=== PATIENT | male | born 1940 | race Caucasian/White ===

== ENCOUNTER 2022-10-11 16:20 | Inpatient (IN) | payer MEDICARE, MEDICAID ==
[~2022-10-11] VITALS: Ht 175.3 cm; Wt 54.4 kg
[2022-10-11 17:28] LABS: BASOPHILS # (AUTO) 0.1 K/UL (0.0-0.2); BASOPHILS % (AUTO) 1.6 % (0.0-2.0); EOSINOPHILS # (AUTO) 0.1 K/uL (0.0-0.7); EOSINOPHILS % (AUTO) 1.8 % (0.0-7.0); HEMATOCRIT 33.8 % (36.7-47.1); HEMOGLOBIN 11.5 g/dL (12.5-16.3); LYMPHOCYTES # (AUTO) 0.7 K/uL (0.8-4.8); LYMPHOCYTES % (AUTO) 12.8 % (20.5-51.5); MEAN CORPUSCULAR HEMOGLOBIN 32.9 uug (23.8-33.4); MEAN CORPUSCULAR HGB CONC 34 g/dL (32.5-36.3); MEAN CORPUSCULAR VOLUME 97.1 fL (73.0-96.2); MONOCYTES # (AUTO) 0.5 K/uL (0.1-1.30); MONOCYTES % (AUTO) 8.1 % (0.0-11.0); NEUTROPHILS # (AUTO) 4.3 K/uL (1.8-8.9); NEUTROPHILS % (AUTO) 75.7 % (38.5-71.5); PLATELET COUNT (AUTO) 185 K/uL (152-348); RED BLOOD CELL COUNT(AUTO) 3.48 MIL/uL (4.06-5.63); RED CELL DISTRIBUTION WIDTH 17.4 % (12.1-16.2); WHITE BLOOD COUNT (AUTO) 5.7 K/uL (3.6-10.2)
[2022-10-11 17:46] LABS: DIFFERENTIAL COMMENT 1
[2022-10-11 17:51] LABS: ALANINE AMINOTRANSFERASE 21 U/L (16-63); ALBUMIN 2.8 g/dL (3.4-5.0); ALKALINE PHOSPHATASE 82 U/L (50-136); ASPARTATE AMINOTRANSFERASE 14 U/L (15-37); BILIRUBIN,DIRECT 0.2 mg/dL (0.0-0.2); BILIRUBIN,TOTAL 0.3 mg/dL (0.2-1.0); CALCIUM 8.3 mg/dL (8.5-10.1); CARBON DIOXIDE 18 mmol/L (21-32); CHLORIDE 100 mmol/L (98-107); CREATININE 5.5 mg/dL (0.6-1.3); GLUCOSE 259 mg/dL (74-106); POTASSIUM 5.4 mmol/L (3.5-5.1); SODIUM SERUM 133 mmol/L (136-145); TOTAL PROTEIN, SERUM 6.3 g/dL (6.4-8.2)
[2022-10-11 18:11] LABS: UREA NITROGEN, BLOOD 115 mg/dL (7-18)
[2022-10-11] MEDS ORDERED: ONDANSETRON 4 MG/2 ML VIAL IV PRN (19:45)
[2022-10-11] MEDS ORDERED: MAGNESIUM HYDROXIDE 30 ML LIQUID UDC PO PRN (19:45)
[2022-10-11] MEDS ORDERED: ACETAMINOPHEN 325 MG TABLET PO PRN (19:45)
[2022-10-11] MEDS ORDERED: DEXTROSE 50% 50 ML DISP.SYRIN IV PRN (19:45)
[2022-10-11] MEDS ORDERED: IV NS 1000 ML 1,000 ML IV PRN (19:45)
[2022-10-11] MEDS ORDERED: REMEDY ESSENTIAL ZINC PASTE 113 GM TP PRN (19:45)
[2022-10-11] MEDS: MORPHINE SULFATE 2 MG/1 ML DISP.SYRIN IV PRN (21:09)
[2022-10-11] MEDS: HYDROCODONE/APAP 5-325MG TABLET PO PRN (22:05)
[2022-10-11 23:01] VITALS: BP 186/89; TEMP 97.9; O2SAT 99
[2022-10-11] MEDS ORDERED: LEVA0.6320 NEB (23:02)
[2022-10-11] MEDS ORDERED: INSU100C (23:02)
[2022-10-11] MEDS ORDERED: TAMS-3 PO (23:02)
[2022-10-11] MEDS ORDERED: LOSA25TA3 PO (23:02)
[2022-10-11] MEDS ORDERED: ALBU18HF2 INH (23:02)
[2022-10-11] MEDS ORDERED: METO-356 PO (23:02)
[2022-10-11] MEDS ORDERED: prostat PO (23:02)
[2022-10-11] MEDS ORDERED: SEVE800T8 PO (23:02)
[2022-10-11] MEDS ORDERED: BUME1TAB8 PO (23:02)
[2022-10-11] MEDS ORDERED: UMEC62.5 IH (23:02)
[2022-10-11] MEDS ORDERED: DICL2.5D EACHEYE (23:02)
[2022-10-11] MEDS ORDERED: DOCU-141 PO (23:02)
[2022-10-11] MEDS ORDERED: MEGE400O5 PO (23:02)
[2022-10-11] MEDS ORDERED: TRAZ-257 PO (23:02)
[2022-10-11] MEDS ORDERED: ISOS30TA9 PO (23:02)
[2022-10-11] MEDS ORDERED: ACET325T53 PO (23:02)
[2022-10-11] MEDS ORDERED: ATOR40TA PO (23:02)
[2022-10-11] MEDS ORDERED: RANO500T3 PO (23:02)
[2022-10-11] MEDS ORDERED: OLOP5DRO15 EACHEYE (23:02)
[2022-10-11] MEDS ORDERED: POLY1GRA PO (23:02)
[2022-10-11] MEDS ORDERED: RANO500T6 PO (23:02)
[2022-10-11] MEDS ORDERED: FERR325T28 PO (23:02)
[2022-10-11] MEDS ORDERED: [UNRECOGNIZED DRUG - OTHER] PO (23:02)
[2022-10-11] MEDS ORDERED: PANT40TA2 PO (23:02)
[2022-10-11] MEDS: BLOOD SUGAR DIAGNOSTIC 1 EACH STRIP VI SCH (23:09)
[2022-10-11] MEDS ORDERED: TRAZODONE 50 MG TABLET PO PRN (23:15)
[2022-10-11] MEDS ORDERED: hydrALAZINE HCL 20 MG/1 ML VIAL IV PRN (23:15)
[2022-10-12 00:30] VITALS: BP 160/91; TEMP 97.9; O2SAT 99
[2022-10-12 04:10] VITALS: BP 160/80; TEMP 98; O2SAT 99
[2022-10-12] MEDS: BLOOD SUGAR DIAGNOSTIC 1 EACH STRIP VI SCH ×4 (07:02→21:31)
[2022-10-12 07:03] LABS: BASOPHILS # (AUTO) 0.1 K/UL (0.0-0.2); BASOPHILS % (AUTO) 1.9 % (0.0-2.0); EOSINOPHILS # (AUTO) 0.1 K/uL (0.0-0.7); EOSINOPHILS % (AUTO) 1.7 % (0.0-7.0); HEMATOCRIT 33.7 % (36.7-47.1); HEMOGLOBIN 11.5 g/dL (12.5-16.3); LYMPHOCYTES # (AUTO) 1.1 K/uL (0.8-4.8); LYMPHOCYTES % (AUTO) 19.9 % (20.5-51.5); MEAN CORPUSCULAR HEMOGLOBIN 32.9 uug (23.8-33.4); MEAN CORPUSCULAR HGB CONC 34 g/dL (32.5-36.3); MONOCYTES # (AUTO) 0.4 K/uL (0.1-1.30); MONOCYTES % (AUTO) 8.2 % (0.0-11.0); NEUTROPHILS # (AUTO) 3.7 K/uL (1.8-8.9); NEUTROPHILS % (AUTO) 68.3 % (38.5-71.5); PLATELET COUNT (AUTO) 193 K/uL (152-348); RED BLOOD CELL COUNT(AUTO) 3.51 MIL/uL (4.06-5.63); RED CELL DISTRIBUTION WIDTH 17.2 % (12.1-16.2); WHITE BLOOD COUNT (AUTO) 5.4 K/uL (3.6-10.2)
[2022-10-12] MEDS: PANTOPRAZOLE SODIUM 40 MG TABLET.DR PO SCH (07:04)
[2022-10-12] MEDS: HYDROCODONE/APAP 5-325MG TABLET PO PRN ×3 (07:04→21:27)
[2022-10-12 07:21] LABS: DIFFERENTIAL COMMENT 1
[2022-10-12 07:29] LABS: CALCIUM 8.3 mg/dL (8.5-10.1); CARBON DIOXIDE 20 mmol/L (21-32); CHLORIDE 101 mmol/L (98-107); CHOLESTEROL 116 mg/dL (<200); CREATININE 5.5 mg/dL (0.6-1.3); GLUCOSE 123 mg/dL (74-106); HDL CHOLESTEROL 65 mg/dL (40-60); MAGNESIUM 2.5 mg/dL (1.8-2.4); SODIUM SERUM 135 mmol/L (136-145); TRIGLYCERIDES 61 MG/DL (30-150)
[2022-10-12 07:46] LABS: THYROID STIMULATING HORMONE 1.931 mIU/mL (0.358-3.740)
[2022-10-12 08:28] LABS: PHOSPHOROUS 8.5 mg/dL (2.5-4.9); UREA NITROGEN, BLOOD 110 mg/dL (7-18)
[2022-10-12 11:50] VITALS: BP 142/75; TEMP 98.3; O2SAT 98
[2022-10-12] MEDS: INSULIN REGULAR, HUMAN 300 UNIT/3 ML VIAL SQ PRN ×3 (12:14→16:10)
[2022-10-12] MEDS: MORPHINE SULFATE 2 MG/1 ML DISP.SYRIN IV PRN ×2 (13:14→18:49)
[2022-10-12] MEDS: SEVELAMER CARBONATE 800 MG TABLET PO SCH ×2 (13:19→17:17)
[2022-10-12] MEDS: RANOLAZINE 500 MG TAB.ER.12H PO SCH (17:17)
[2022-10-12] MEDS: TRAZODONE 100 MG TABLET PO SCH (17:17)
[2022-10-12] MEDS ORDERED: ATORVASTATIN 40 MG TABLET PO SCH (21:00)
[2022-10-12] MEDS ORDERED: TAMSULOSIN HCL 0.4 MG CAP.SR.24H PO SCH (21:00)
[2022-10-13 06:28] LABS: BASOPHILS # (AUTO) 0.1 K/UL (0.0-0.2); BASOPHILS % (AUTO) 1.4 % (0.0-2.0); EOSINOPHILS # (AUTO) 0.1 K/uL (0.0-0.7); EOSINOPHILS % (AUTO) 1.3 % (0.0-7.0); HEMATOCRIT 36.4 % (36.7-47.1); HEMOGLOBIN 12.4 g/dL (12.5-16.3); LYMPHOCYTES # (AUTO) 0.8 K/uL (0.8-4.8); LYMPHOCYTES % (AUTO) 19.7 % (20.5-51.5); MEAN CORPUSCULAR HEMOGLOBIN 33.2 uug (23.8-33.4); MEAN CORPUSCULAR HGB CONC 34 g/dL (32.5-36.3); MEAN CORPUSCULAR VOLUME 97.6 fL (73.0-96.2); MONOCYTES # (AUTO) 0.3 K/uL (0.1-1.30); MONOCYTES % (AUTO) 7.7 % (0.0-11.0); NEUTROPHILS # (AUTO) 2.9 K/uL (1.8-8.9); NEUTROPHILS % (AUTO) 69.9 % (38.5-71.5); PLATELET COUNT (AUTO) 197 K/uL (152-348); RED BLOOD CELL COUNT(AUTO) 3.73 MIL/uL (4.06-5.63); RED CELL DISTRIBUTION WIDTH 17.3 % (12.1-16.2); WHITE BLOOD COUNT (AUTO) 4.1 K/uL (3.6-10.2)
[2022-10-13 06:39] LABS: CALCIUM 8.7 mg/dL (8.5-10.1); CARBON DIOXIDE 23 mmol/L (21-32); CHLORIDE 100 mmol/L (98-107); CREATININE 5.8 mg/dL (0.6-1.3); GLUCOSE 119 mg/dL (74-106); SODIUM SERUM 135 mmol/L (136-145)
[2022-10-13] MEDS: PANTOPRAZOLE SODIUM 40 MG TABLET.DR PO SCH (06:40)
[2022-10-13] MEDS: BLOOD SUGAR DIAGNOSTIC 1 EACH STRIP VI SCH ×3 (06:41→16:22)
[2022-10-13 06:53] LABS: DIFFERENTIAL COMMENT 1
[2022-10-13 07:15] LABS: UREA NITROGEN, BLOOD 107 mg/dL (7-18)
[2022-10-13] MEDS: SEVELAMER CARBONATE 800 MG TABLET PO SCH ×3 (08:33→17:35)
[2022-10-13] MEDS: RANOLAZINE 500 MG TAB.ER.12H PO SCH ×2 (08:33→16:30)
[2022-10-13] MEDS: OLOPATADINE 0.1% OPHT DROP 5 ML BOTTLE EACHEYE SCH ×2 (08:37→08:55)
[2022-10-13] MEDS ORDERED: BUMETANIDE 1 MG TABLET PO SCH (09:00)
[2022-10-13] MEDS ORDERED: LOSARTAN POTASSIUM 25 MG TABLET PO SCH (09:00)
[2022-10-13] MEDS ORDERED: FERROUS SULFATE 325 MG TABEC PO SCH (09:00)
[2022-10-13] MEDS ORDERED: METOPROLOL SUCCINATE XL 25 MG TAB.SR.24H PO SCH (09:00)
[2022-10-13 09:23] VITALS: BP 164/92; TEMP 97.8; O2SAT 98
[2022-10-13] MEDS: MORPHINE SULFATE 2 MG/1 ML DISP.SYRIN IV PRN (09:35)
[2022-10-13 11:11] VITALS: BP 155/78; TEMP 98.6; O2SAT 97
[2022-10-13] MEDS ORDERED: SODIUM POLYSTYRENE SULFONATE 15 G/60 ML LIQUID UDC PO ONE (11:30)
[2022-10-13 15:09] VITALS: BP 143/78; TEMP 98.4; O2SAT 98
[2022-10-13] MEDS: TRAZODONE 100 MG TABLET PO SCH (17:35)
[2022-10-13] MEDS ORDERED: ALBUMIN HUMAN 25% 50 ML IV PRN (17:45)
[2022-10-13 20:00] VITALS: BP 147/72; TEMP 98.6; O2SAT 96
== END 2022-10-13 20:00 | DRG 640 ==
LOC: ER 16:20 → TELE3 21:51
PROVIDERS: ADMIT Nurse Practitioner Acute Care; ATTEND Nurse Practitioner Acute Care
PROC: 5A1D70Z Performance of Urinary Filtration, Intermittent, Less than 6 Hours Per Day (ICD-10-PCS; principal; 2022-10-13)
DX: E87.5 Hyperkalemia (principal); N18.6 End stage renal disease; I13.2 Hypertensive heart and chronic kidney disease with heart failure and with stage 5 chronic kidney disease, or end stage renal disease; I50.32 Chronic diastolic (congestive) heart failure; D68.59 Other primary thrombophilia; N17.9 Acute kidney failure, unspecified; E87.20 Acidosis, unspecified; E11.22 Type 2 diabetes mellitus with diabetic chronic kidney disease; Z99.2 Dependence on renal dialysis; Z91.158 Patient's noncompliance with renal dialysis for other reason; Z79.4 Long term (current) use of insulin; E87.1 Hypo-osmolality and hyponatremia; E78.5 Hyperlipidemia, unspecified; I48.0 Paroxysmal atrial fibrillation; M89.8X9 Other specified disorders of bone, unspecified site; L89.91 Pressure ulcer of unspecified site, stage 1; R26.2 Difficulty in walking, not elsewhere classified; I25.10 Atherosclerotic heart disease of native coronary artery without angina pectoris; Z95.5 Presence of coronary angioplasty implant and graft; K21.9 Gastro-esophageal reflux disease without esophagitis; N40.0 Benign prostatic hyperplasia without lower urinary tract symptoms; J44.9 Chronic obstructive pulmonary disease, unspecified; F43.21 Adjustment disorder with depressed mood; S90.32XA Contusion of left foot, initial encounter; I87.2 Venous insufficiency (chronic) (peripheral); X58.XXXA Exposure to other specified factors, initial encounter; Y92.129 Unspecified place in nursing home as the place of occurrence of the external cause; Z87.891 Personal history of nicotine dependence; I34.81 Nonrheumatic mitral (valve) annulus calcification; R25.1 Tremor, unspecified; E83.39 Other disorders of phosphorus metabolism; D63.1 Anemia in chronic kidney disease; E83.41 Hypermagnesemia; E11.51 Type 2 diabetes mellitus with diabetic peripheral angiopathy without gangrene; Z91.199 Patient's noncompliance with other medical treatment and regimen due to unspecified reason
CPT/HCPCS: 36415; 71045; 76770; 83605; 83735; 84100; 84443; 84484; 85025; 85730; 87040; 93005; 93307; A4663; A6209; A6213; G0378; J0360; J1815; J2270; J2405; J7040; P9047